=== PATIENT | male | born 1980 | race Caucasian/White ===

== ENCOUNTER 2019-07-07 14:21 | Emergency (ER) | payer OTHER ==
[2019-07-07] MEDS ORDERED: Fluorescein Opthalmic Strip ONE (14:26)
[2019-07-07] MEDS ORDERED: Proparacaine 0.5% Opth 15 ML BOT ONE (14:26)
== END 2019-07-07 14:58 ==
LOC: ERS 14:21
DX: T15.02XA Foreign body in cornea, left eye, initial encounter (principal); I10 Essential (primary) hypertension
CPT/HCPCS: 65210